=== PATIENT | female | born 1985 | race Two or more races ===

== ENCOUNTER 2016-11-25 19:35 | Emergency (ER) | payer OTHER ==
[~2016-11-25] VITALS: Ht 162.6 cm; Wt 136.1 kg
[2016-11-25 20:05] VITALS: BP 174/119
[2016-11-25] MEDS ORDERED: CYCLOBENZAPRINE 10 MG TABLET. PO ONE (20:30)
[2016-11-25] MEDS ORDERED: HYDROcodone/APAP 5/325MG 1 TAB TABLET PO ONE (20:30)
[2016-11-25] MEDS ORDERED: NAPR500T8 PO (20:42)
[2016-11-25] MEDS ORDERED: HYDR-971 PO (20:42)
[2016-11-25] MEDS ORDERED: CYCL10TA2 PO (20:42)
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
== END 2016-11-25 20:48 | disposition home or self-care (01) ==
LOC: ER 19:35
DX: S13.4XXA Sprain of ligaments of cervical spine, initial encounter (principal); S23.3XXA Sprain of ligaments of thoracic spine, initial encounter; S80.02XA Contusion of left knee, initial encounter; M54.5 Low back pain; M25.531 Pain in right wrist; J45.909 Unspecified asthma, uncomplicated; M19.90 Unspecified osteoarthritis, unspecified site; V49.40XA Driver injured in collision with unspecified motor vehicles in traffic accident, initial encounter; Y93.I9 Activity, other involving external motion; Y92.410 Unspecified street and highway as the place of occurrence of the external cause; Y99.8 Other external cause status
CPT/HCPCS: 99283

== ENCOUNTER 2018-05-04 15:11 | Emergency (ER) | payer OTHER ==
[~2018-05-04] VITALS: Ht 165.1 cm; Wt 136.1 kg
[~2018-05-04 15:11] MED LIST: CYCL10TA2 PO; HYDR-971 PO; NAPR500T8 PO
[2018-05-04 15:27] VITALS: BP 153/89
--- NOTE | 2018-05-04 15:32 | PHYS DOC ---
Past Medical History Past Medical History: Arthritis, Asthma, Other Additional Past Medical Histor: arthritis in spine Past Surgical History: Cholecystectomy, Other Additional Past Surgical Histo: tumor removal from left foot Alcohol Use: Occasionally Drug Use: None Adult General Chief Complaint Chief Complaint: FOOT INJURY PAIN HPI HPI Patient is a 33 year old female with history of asthma, arthritis, who presents today complaining of moderate pain on the side of the right foot that began this morning when she stepped wrong and twisted her foot. Patient states her pain is worse on weight bearing. He describes the pain as sharp and intermittent. Review of Systems Review of Systems Constitutional: Denies fever or chills [] Musculoskeletal: Reports right foot pain Integument: Denies rash or skin lesions [] Neurologic: Denies headache, focal weakness or sensory changes [] All other systems were reviewed and found to be within normal limits, except as documented in this note. Current Medications Current Medications Current Medications Medications (Trade) Dose Ordered Sig/Scott Start Time Stop Time Status Last Admin Dose Admin Acetaminophen/ Hydrocodone Bitart (Lortab 5/325) 2 tab 1X ONCE 05/04/18 16:00 05/04/18 16:01 Naproxen (Naprosyn) 500 mg 1X STAT 05/04/18 15:48 05/04/18 15:49 DC Allergies Allergies Allergies Coded Allergies Type Severity Reaction Last Updated Verified No Known Drug Allergies 10/29/13 No Physical Exam Physical Exam Constitutional: Well developed, well nourished, no acute distress, non-toxic appearance. [] Skin: Warm, dry, no erythema, no rash. [] Back: No tenderness, no CVA tenderness. [] Extremities: Right foot with no obvious deformity. Tenderness on palpation of the base of the fifth metatarsal and along the fifth metatarsal of the right foot. No navicular bone tenderness. Full passive range of motion to the right foot. Full range of motion to the right toes. +2 right pedal pulse. Cap refill less than 2 seconds to the right toes. Sensation intact. Neurologic: Alert and oriented X 3, normal motor function, normal sensory function, no focal deficits noted. [] Psychologic: Affect normal, judgement normal, mood normal. [] Current Patient Data Vital Signs Vital Signs Date Time Temp Pulse Resp B/P (MAP) Pulse Ox O2 Delivery O2 Flow Rate FiO2 05/04/18 15:27 98.6 120 18 153/89 (110) 97 Room Air 98.6 EKG EKG [] Radiology/Procedures Radiology/Procedures []PROCEDURE: FOOT RIGHT 3V FOOT RIGHT 3V Clinical Indication: [place] a pop sound while walking Comparison: Right foot, 3 views October 22, 2015. Findings: There is acute traumatic transverse fracture at the proximal diaphysis of the fifth metatarsal. Traumatic Nogueira fracture or stress fracture are considerations. The mineralization is normal. Mild dorsal soft tissue swelling. The joint spaces are maintained. Bipartite medial sesamoid. Old healed fracture of the distal diaphysis of the fourth metatarsal. Metatarsus premise varus. IMPRESSION: Acute traumatic nondisplaced transverse fracture of the proximal diaphysis of the fifth metatarsal. Electronically signed by: Mohinder Brown MD (05/04/2018 3:46 PM) [id number] DICTATED and SIGNED BY: MOHINDER BROWN MD DATE: 05/04/18 1543 Course & Med Decision Making Course & Med Decision Making Pertinent Labs and Imaging studies reviewed. (See chart for details) This is a 33-year-old here patient presenting to the ED today with right foot pain after stepping wrong and twisting the foot. Right foot x-rays interpreted by radiologist were noted for acute traumatic nondisplaced transverse fracture of the proximal diaphysis of the fifth metatarsal. Patient was placed in a posterior leg splint by the ED RN, neurovascular exam is intact, ice elevation encouraged. Crutches provided. Follow-up with orthopedic doctor as soon as possible. Contact information provided. Dragon Disclaimer Dragon Disclaimer This electronic medical record was generated, in whole or in part, using a voice recognition dictation system. Departure Departure Impression: Primary Impression: Fracture of fifth metatarsal bone of right foot Disposition: 01 HOME, SELF-CARE Condition: STABLE Referrals: Khang HAWTHORNE MD (PCP) DAMARIS ARIAS II, MD Contact the office tomorrow morning and set up a follow-up appointment Patient Instructions: Metatarsal Fracture with [facility] Additional Instructions: You have right foot fracture. Ice elevate the extremity. Do not bear weight on the extremity. Contact the provided orthopedic doctor tomorrow morning and set up a follow-up appointment. Take the prescribed medicines as needed for pain. Scripts Naproxen (NAPROXEN) 500 Mg Tablet.dr 1 TAB PO BID, #30 TAB 0 Refills Prov: MUTUNGA,MICKY KEATON 05/04/18 Hydrocodone/Apap 5-325 (NORCO 5-325 TABLET) 1 Each Tablet 1 TAB PO Q6HRS PRN for PAIN, #20 TAB Prov: SHANNONGEORGIMICKY APRN 05/04/18 Problem Qualifiers Primary Impression: Fracture of fifth metatarsal bone of right foot Encounter type: initial encounter Fracture type: closed Fracture alignment : nondisplaced Qualified Codes: S92.354A - Nondisplaced fracture of fifth metatarsal bone, right foot, initial encounter for closed fracture SHANNONINDIANAMICKY Real APRN May 04, 2018 15:32
--- NOTE | 2018-05-04 15:49 | RAD ---
FOOT RIGHT 3V Clinical Indication: [place] a pop sound while walking Comparison: Right foot, 3 views October 22, 2015. Findings: There is acute traumatic transverse fracture at the proximal diaphysis of the fifth metatarsal. Traumatic Nogueira fracture or stress fracture are considerations. The mineralization is normal. Mild dorsal soft tissue swelling. The joint spaces are maintained. Bipartite medial sesamoid. Old healed fracture of the distal diaphysis of the fourth metatarsal. Metatarsus premise varus. IMPRESSION: Acute traumatic nondisplaced transverse fracture of the proximal diaphysis of the fifth metatarsal. Electronically signed by: Mohinder Brown MD (05/04/2018 3:46 PM) [id number]
[2018-05-04] MEDS: HYDROcodone/APAP 5/325MG 1 TAB TABLET PO ONE (15:57)
[2018-05-04] MEDS: NAPROXEN 500 MG TABLET PO STA (15:58)
[2018-05-04] MEDS ORDERED: HYDR-971 PO (15:58)
[2018-05-04] MEDS ORDERED: NAPR500T8 PO (15:58)
== END 2018-05-04 16:29 | disposition home or self-care (01) ==
LOC: ER 15:11
DX: S92.354A Nondisplaced fracture of fifth metatarsal bone, right foot, initial encounter for closed fracture (principal); M19.90 Unspecified osteoarthritis, unspecified site; J45.909 Unspecified asthma, uncomplicated; Z90.49 Acquired absence of other specified parts of digestive tract; X50.1XXA Overexertion from prolonged static or awkward postures, initial encounter; Y93.89 Activity, other specified; Y92.89 Other specified places as the place of occurrence of the external cause; Y99.8 Other external cause status
CPT/HCPCS: 73630; 99284

== ENCOUNTER 2018-05-08 16:52 | Emergency (ER) | payer OTHER ==
[~2018-05-08] VITALS: Ht 170.2 cm; Wt 136.1 kg
[2018-05-08 17:02] VITALS: BP 177/108
--- NOTE | 2018-05-08 17:30 | PHYS DOC ---
Past Medical History Past Medical History: Arthritis, Asthma Additional Past Medical Histor: arthritis in spine Past Surgical History: Cholecystectomy, Other Additional Past Surgical Histo: FOOT X3 Alcohol Use: Occasionally Drug Use: None Adult General Chief Complaint Chief Complaint: CAST CHECK HPI HPI Patient is a 33 year old male who presents to the emergency room with complaints of increased pain in her right foot. Patient states she was seen here on May 04, 2018 and diagnosed with a fracture in her foot. She had a posterior lower leg splint placed at that time. She states that during her sleep a few nights ago the splint came off. She states that she has had increased pain in her foot since the splint was replaced. She denies any new injury to the area, numbness, or tingling. Review of Systems Review of Systems Constitutional: Denies fever or chills [] Musculoskeletal: reports R foot pain and recent fracture Integument: Denies rash or skin lesions [] Neurologic: Denies headache, focal weakness or sensory changes [] All other systems were reviewed and found to be within normal limits, except as documented in this note. Allergies Allergies Allergies Coded Allergies Type Severity Reaction Last Updated Verified No Known Drug Allergies 10/29/13 No Physical Exam Physical Exam Constitutional: Well developed, well nourished, no acute distress, non-toxic appearance, obese [] HENT: Normocephalic, atraumatic, bilateral external ears normal, nose normal. [] Eyes: PERRLA, conjunctiva normal, no discharge. [] Skin: Warm, dry, no erythema, no rash, mild bruising over base of 4th toe of L foot [] Extremities: No cyanosis, no clubbing, no edema. L lateral foot tenderness to palpation . [] Neurologic: Alert and oriented X 3, normal motor function, normal sensory function, no focal deficits noted. [] Psychologic: Affect normal, judgement normal, mood normal. [] Current Patient Data Vital Signs Vital Signs Date Time Temp Pulse Resp B/P (MAP) Pulse Ox O2 Delivery O2 Flow Rate FiO2 05/08/18 17:02 98.0 99 18 177/108 (131) 98 Room Air 98.0 EKG EKG [] Radiology/Procedures Radiology/Procedures PROCEDURE: FOOT RIGHT 3V 3 view study of the right foot Clinical indications: Injured right foot on May 04, 2018. Splint came off in sleep. Patient complains of increasing pain. History of recent fracture. COMPARISON: May 04, 2018. FINDINGS: Again seen is a nondisplaced transverse fracture of the proximal fifth metatarsal bone which is unchanged from the previous study and is not healed. It is not displaced. No new fracture is evident. Old healed fracture of the distal fourth metatarsal bone is seen. Small plantar spur of the calcaneus is seen. No osteolytic process is evident. IMPRESSION: Stable nonhealed nondisplaced fracture of the proximal fifth metatarsal bone.[] Course & Med Decision Making Course & Med Decision Making Pertinent Labs and Imaging studies reviewed. (See chart for details) [] Dragon Disclaimer Dragon Disclaimer This electronic medical record was generated, in whole or in part, using a voice recognition dictation system. Departure Departure Impression: Primary Impression: Fracture of fifth metatarsal bone of right foot Additional Impression: Right foot sprain Disposition: HOME, SELF-CARE Condition: STABLE Referrals: Khang HAWTHORNE MD (PCP) Patient Instructions: Foot Fracture-Brief Additional Instructions: Wear the splint that was applied and use your crutches until you follow up with the orthopedic doctor as scheduled. Take tylenol or ibuprofen as needed for pain. Return to the ER if your symptoms worsen. Splinting Splinting : Location: R lower leg Hand-Made Type: orthoglass Splint: posterior short leg Pre-Proc Neuro Vasc Exam: normal Post-Proc Neuro Vasc Exam: normal, unchanged from pre-exam Progress pt was offered a post-op shoe instead of splint and declined the shoe. Problem Qualifiers ADDY LUONG APRN May 08, 2018 17:30
--- NOTE | 2018-05-08 19:54 | RAD ---
3 view study of the right foot Clinical indications: Injured right foot on May 04, 2018. Splint came off in sleep. Patient complains of increasing pain. History of recent fracture. COMPARISON: May 04, 2018. FINDINGS: Again seen is a nondisplaced transverse fracture of the proximal fifth metatarsal bone which is unchanged from the previous study and is not healed. It is not displaced. No new fracture is evident. Old healed fracture of the distal fourth metatarsal bone is seen. Small plantar spur of the calcaneus is seen. No osteolytic process is evident. IMPRESSION: Stable nonhealed nondisplaced fracture of the proximal fifth metatarsal bone. Electronically signed by: José Antonio Valdovinos MD (05/08/2018 7:50 PM) [facility]
== END 2018-05-08 18:40 | disposition home or self-care (01) ==
LOC: ER 16:52
DX: S92.354A Nondisplaced fracture of fifth metatarsal bone, right foot, initial encounter for closed fracture (principal); S93.601A Unspecified sprain of right foot, initial encounter; J45.909 Unspecified asthma, uncomplicated; X58.XXXA Exposure to other specified factors, initial encounter; Y93.89 Activity, other specified; Y92.89 Other specified places as the place of occurrence of the external cause; Y99.8 Other external cause status
CPT/HCPCS: 29515; 73630; 99284-25

== ENCOUNTER 2018-07-22 07:17 | Day surgery (SDC) | payer OTHER ==
[~2018-07-22] VITALS: Ht 160 cm; Wt 153.3 kg
[~2018-07-22 07:17] MED LIST changes: +CELE200C PO; +FLUT1DIS5 IH; +HYDR-3164 PO; -HYDR-971 PO; +IBUP-1060 PO; +IV RINGERS,LACTATED 1000ML 1,000 ML IV SCH; +LIDOCAINE 1% PF 2 ML VIAL. ID PRN; +ONDANSETRON PF 4 MG/2 ML VIAL. IV PRN; +PROCHLORPERAZINE 10 MG/2 ML VIAL. IV PRN; +RIZA10TA PO; +VENTOLIN HFA18 GM INH; +ceFAZolin SODIUM 3 GM in IV DEXTROSE 5% 100ML 100 ML IV PRN; +fentaNYL PF VIAL 100 MCG/2 ML VIAL IV PRN
[2018-07-22] MEDS ORDERED: BUPIVAC MPF-EPI 0.5%-1:200000 30 ML VIAL. ONE (08:05)
[2018-07-22] MEDS ORDERED: LIDOCAINE 2% PF Vial for OR 5 ML VIAL. ONE (08:46)
[2018-07-22] MEDS ORDERED: PROPOFOL 20 ML IV ONE (08:46)
[2018-07-22] MEDS ORDERED: FAMOTIDINE 20 MG/2 ML VIAL ONE (08:46)
[2018-07-22] MEDS ORDERED: ONDANSETRON PF 4 MG/2 ML VIAL. ONE (08:46)
[2018-07-22] MEDS ORDERED: fentaNYL PF VIAL 100 MCG/2 ML VIAL ONE ×3 (08:46→11:37)
[2018-07-22] MEDS ORDERED: DEXAMETHASONE SOD PHOS 20 MG/5 ML VIAL. ONE (08:46)
[2018-07-22] MEDS ORDERED: KETAMINE HCL IN STERILE WATER 50 MG/5 ML SYRINGE ONE (08:46)
[2018-07-22 09:43] LABS: U PREG PATIENT NEGATIVE (NEG)
[2018-07-22] MEDS ORDERED: MIDAZOLAM HCL/PF 2 MG/2 ML VIAL. ONE (09:50)
[2018-07-22] MEDS ORDERED: 0.9 % SODIUM CHLORIDE 20 ML VIAL. IJ ONE (10:24)
[2018-07-22] MEDS ORDERED: VECURONIUM BOLUS 10 MG VIAL. IV ONE (10:24)
[2018-07-22] MEDS ORDERED: KETOROLAC 30 MG/ML INJ FOR OR. INJ ONE (10:26)
[2018-07-22] MEDS ORDERED: GLYCOPYRROLATE 1 MG/5 ML VIAL. ONE (10:54)
[2018-07-22] MEDS ORDERED: DESFLURANE 61 TO 120 MINUTES IH ONE (11:07)
--- NOTE | 2018-07-22 11:12 | DISCH ---
DISCHARGE INSTRUCTIONS Condition on Discharge Condition on Discharge: Stable Activity After Discharge Activity Instructions for Disc: Other, see below Weight Bearing Status after Di: Touch down weight bearing (May touch heel down for transfers, otherwise keep weight off with crutches while walking) Diet after Discharge Diet after Discharge: Regular Wound Incision Care Wound/Incision Care: Ice to area for comfort, Do not change dressing Contacting the DRKayode after DC Call your doctor for: Concerns you may have Follow-Up Follow up with: Jagdish 10 days Treatment/Equipment after DC Adaptive Equipment Issued: Crutches (has crutches at home) ARNIE BENITEZ MD Jul 22, 2018 11:12
[2018-07-22] MEDS ORDERED: OXYC1TAB19 PO (11:14)
--- NOTE | 2018-07-22 11:20 | PDOC4 ---
Operative Note Operative Note Date of surgery: 07/22/2018 Preoperative diagnosis: Delayed healing proximal right fifth metatarsal shaft fracture Postoperative diagnosis: Same Operative procedure: Operative reduction internal fixation right fifth metatarsal proximal shaft (Nogueira fracture) Surgeon: Jagdish Anesthesia: Gen. Estimated blood loss: 30 mL Complications: None Operative indications: Luisa is a 33-year-old female that broke her foot and was followed none surgically in clinic with a Nogueira fracture. I recommended nonweightbearing if she wanted to pursue nonoperative treatment. She stated that she was unable to really comply with the nonweightbearing and the foot is hurting a lot more. X-rays really do not show progression to healing and she does show a bit of displacement. I went over with her risks benefits postoperative course of stabilization of the fracture to help it stay in place while healing occurs. Initially I would recommend nonweightbearing until her incision heals then we can progressively start her on some weightbearing. There is a possibility of nonhealing infection nerve or blood vessel damage medical or other anesthetic complications among others all her questions were answered she wishes to proceed with surgical evaluation and treatment. Operative text: Patient was identified procedure verified patient placed in the supine position on the operating table. After adequate amounts of general anesthesia were administered the right lower extremity was prepped and draped in standard sterile fashion with a thigh tourniquet. After timeout was performed patient procedure identified and verified the right lower extremity was examined by elevation and tourniquet inflated to 350 mm mercury an incision was made in line at the base of the fifth metatarsal. A guidewire was placed under fluoroscopic guidance down the center of the reduced metatarsal and proximal cortex was drilled. Based on the placement of the guidewire a 60 mm 5 mm Crystal cannulated titanium screw was placed and gave excellent bite and reduction was noted to have anatomic reduction under multiple fluoroscopic views. Thorough irrigation carried out normal saline solution bleeding points controlled by electrocautery subcutaneous closure accomplished with buried Vicryl suture skin closure with nylon in a simple and vertical mattress fashion sterile dressings were applied followed by a well-padded posterior Ortho-Glass splint. Toes were noted be warm pink following deflation of tourniquet after total tourniquet time approximately 1 hour. Patient was returned recovery room in stable condition having tolerated procedure well ARNIE BENITEZ MD Jul 22, 2018 11:20
[2018-07-22] MEDS ORDERED: MORPHINE SULFATE 4 MG/ML VIAL. ONE (11:24)
[2018-07-22] MEDS ORDERED: PROCHLORPERAZINE 10 MG/2 ML VIAL. ONE (11:24)
[2018-07-22] MEDS: fentaNYL PF VIAL 100 MCG/2 ML VIAL IV PRN ×4 (11:30→12:28)
[2018-07-22] MEDS: MORPHINE SULFATE 4 MG/ML VIAL. IV PRN ×4 (11:33→12:26)
[2018-07-22] MEDS ORDERED: HYDROcodone/APAP 7.5/325MG 1 TAB TABLET ONE (12:03)
[2018-07-22] MEDS ORDERED: oxyCODONE/APAP 7.5/325 1 TAB TABLET PO ONE (12:15)
[2018-07-22] MEDS ORDERED: HYDROmorphone 2 MG/ML VIAL ONE (12:20)
[2018-07-22] MEDS: HYDROmorphone 2 MG/ML VIAL IV PRN ×3 (12:27→12:54)
[2018-07-22 12:35] VITALS: BP 98/61
== END 2018-07-22 14:36 | disposition home or self-care (01) ==
LOC: SURG 07:17
PROVIDERS: ATTEND Orthopaedic Surgery
DX: S92.351G Displaced fracture of fifth metatarsal bone, right foot, subsequent encounter for fracture with delayed healing (principal); J45.909 Unspecified asthma, uncomplicated; F32.9 Major depressive disorder, single episode, unspecified; E66.9 Obesity, unspecified; Z98.890 Other specified postprocedural states; Z90.49 Acquired absence of other specified parts of digestive tract; Z83.3 Family history of diabetes mellitus; Z82.0 Family history of epilepsy and other diseases of the nervous system; F17.210 Nicotine dependence, cigarettes, uncomplicated; Z72.89 Other problems related to lifestyle; Z79.899 Other long term (current) drug therapy; X58.XXXD Exposure to other specified factors, subsequent encounter; Z68.43 Body mass index [BMI] 50.0-59.9, adult
CPT/HCPCS: 28485; 76000; 81025; A7015; C1713; J0780; J1100; J1170; J1885; J2001; J2250; J2270; J2405; J2704; J3010; J3490; J7120

== ENCOUNTER → 2020-11-01 | Outpatient (CLI) | payer OTHER ==
[~2020-11-01] MED LIST changes: -IV RINGERS,LACTATED 1000ML 1,000 ML IV SCH; -LIDOCAINE 1% PF 2 ML VIAL. ID PRN; -ONDANSETRON PF 4 MG/2 ML VIAL. IV PRN; +OXYC1TAB19 PO; -PROCHLORPERAZINE 10 MG/2 ML VIAL. IV PRN; -ceFAZolin SODIUM 3 GM in IV DEXTROSE 5% 100ML 100 ML IV PRN; -fentaNYL PF VIAL 100 MCG/2 ML VIAL IV PRN
--- NOTE | 2020-11-01 14:37 | KCIC ---
EXAM: Right knee, 3 views. HISTORY: Pain. COMPARISON: None. FINDINGS: 3 views of the right knee are obtained. There is mild medial compartment predominant spurri ng. There is no fracture, dislocation or subluxation. There is no joint effusion. IMPRESSION: Mild medial compartment predominant osteoarthritis of the right knee. No acute osseous fi nding. Electronically signed by: Key Dorantes MD (11/01/2020 2:35 PM) [id number]
== END ==
LOC: KCIC 14:13
PROVIDERS: ATTEND Family Medicine
DX: M17.11 Unilateral primary osteoarthritis, right knee (principal)
CPT/HCPCS: 73562